=== PATIENT | female | born 1995 | race Caucasian/White ===

== ENCOUNTER 2017-05-24 15:54 | Emergency (ER) | payer OTHER ==
[~2017-05-24] VITALS: Ht 162.6 cm; Wt 70.8 kg
[~2017-05-24 15:54] MED LIST: FLEXERIL10 MG PO; IBUPROFEN600 MG PO; ULTRAM50 MG PO
[2017-05-24 17:51] LABS: HEMATOCRIT 46.6 % (36.0-46.0); HEMOGLOBIN 15.6 G/DL (11.9-15.5); MCH 28.7 PG (29.0-34.0); MCHC 33.5 G/DL (30.0-36.0); MCV 85.8 FL (83-99); PLATELET COUNT 367 K/uL (156-360); RBC DIS.WIDTH-CV 11.9 % (11.8-14.6); RED BLOOD COUNT 5.43 M/uL (3.80-5.20); WHITE BLOOD COUNT 7.3 K/uL (4.1-10.2)
[2017-05-24 18:02] LABS: CHLORIDE 103 mEq/L (99-109); SODIUM 137 mEq/L (136-147)
[2017-05-24 18:04] LABS: GLUCOSE 86 mg/dL (70-99)
[2017-05-24 18:08] LABS: CREATININE 0.8 mg/dL (0.6-1.3); GFR ESTIMATE (CALCULATED) > 59 mL/min/
[2017-05-24 18:09] LABS: UREA NITROGEN (BUN) 13 mg/dL (9-23)
[2017-05-24 22:15] LABS: QUANTITATIVE HCG < 4.0 MIU/ML
[2017-05-24] MEDS ORDERED: MECLIZINE HCL25 MG PO (22:56)
[2017-05-25 00:19] VITALS: BP 103/68
== END 2017-05-25 | disposition home or self-care (01) ==
LOC: EME 15:54
DX: R55 Syncope and collapse (principal); R42 Dizziness and giddiness; R51 Headache; E89.0 Postprocedural hypothyroidism
CPT/HCPCS: 71046; 71275; 80048; 84702; 85027; 93005; 99281; 99284